=== PATIENT | female | born 1955 | race Hispanic/Latino ===

== ENCOUNTER 2023-03-05 17:22 | Observation (INO) | payer OTHER, MEDICARE ==
[~2023-03-05] VITALS: Ht 149.9 cm; Wt 64.4 kg
[~2023-03-05 17:22] MED LIST: ALBU18HF7 IH; AMLO5TAB4 PO; ASPI1TAB7 PO; FLUT9.9S NS; LISI40TA9 PO
[2023-03-05 18:13] LABS: BASOPHILS % (AUTO) 0.5 % (0.0-5.0); EOSINOPHILS % (AUTO) 2.3 % (0.0-8.0); HEMATOCRIT 42.3 % (36-48); LYMPHOCYTES % (AUTO) 42.8 % (21.0-51.0); MEAN CORPUSCULAR HEMOGLOBIN 28.5 pg (27.0-33.0); MEAN CORPUSCULAR HGB CONC 32.9 g/dL (32.0-36.0); MEAN CORPUSCULAR VOLUME 86.7 fL (79-99); MONOCYTES % (AUTO) 6.7 % (3.0-13.0); NEUTROPHILS % (AUTO) 47.5 % (40.0-77.0); PLATELET COUNT (AUTO) 306 K/uL (130-400); RED BLOOD CELL COUNT(AUTO) 4.88 MIL/uL (4.00-5.50); RED CELL DISTRIBUTION WIDTH 13.8 % (11.0-15.5); WHITE BLOOD COUNT (AUTO) 6.5 K/uL (4.8-10.8)
[2023-03-05 18:23] LABS: CREATININE 0.8 mg/dL (0.5-1.5); POTASSIUM 3.5 mmol/L (3.5-5.1)
[2023-03-05 18:29] LABS: ALBUMIN 4.1 g/dL (3.5-5.0); TOTAL PROTEIN, SERUM 8.2 g/dL (6.0-8.3)
[2023-03-05 21:29] LABS: APPEARANCE,URINE CLEAR (CLEAR); BILIRUBIN,URINE NEGATIVE (NEGATIVE); COLOR,URINE COLORLESS (YELLOW); GLUCOSE, URINE (UA) NEGATIVE (NEGATIVE); KETONES,URINE NEGATIVE (NEGATIVE); LEUKOCYTE ESTERASE ,URINE NEGATIVE Leu/uL (NEGATIVE); NITRATE,URINE NEGATIVE (NEGATIVE); OCCULT BLOOD,URINE NEGATIVE (NEGATIVE); PH,URINE 6.5 (5.0-8.0); PROTEIN,URINE NEGATIVE (NEGATIVE); UROBILINOGEN,URINE 0.2 mg/dL (0.2-1.0)
[2023-03-05] MEDS ORDERED: IPRATROPIUM/ALBUTEROL SULFATE 3 ML SOLUTION IH ONE (23:00)
[2023-03-06 01:25] VITALS: BP 163/78
[2023-03-06] MEDS ORDERED: ACETAMINOPHEN 325 MG TAB PO PRN ×2 (01:30)
[2023-03-06] MEDS ORDERED: ONDANSETRON 4MG INJ IVP PRN (01:30)
[2023-03-06] MEDS ORDERED: MORPHINE 2 MG SYG IVP PRN (01:30)
[2023-03-06 03:46] VITALS: BP 106/58
[2023-03-06 06:35] LABS: BASOPHILS % (AUTO) 0.5 % (0.0-5.0); EOSINOPHILS % (AUTO) 1.9 % (0.0-8.0); LYMPHOCYTES % (AUTO) 41.8 % (21.0-51.0); MEAN CORPUSCULAR HEMOGLOBIN 28.7 pg (27.0-33.0); MEAN CORPUSCULAR HGB CONC 33.3 g/dL (32.0-36.0); MEAN CORPUSCULAR VOLUME 86.2 fL (79-99); MONOCYTES % (AUTO) 8.6 % (3.0-13.0); PLATELET COUNT (AUTO) 252 K/uL (130-400); RED BLOOD CELL COUNT(AUTO) 4.64 MIL/uL (4.00-5.50); RED CELL DISTRIBUTION WIDTH 13.8 % (11.0-15.5); WHITE BLOOD COUNT (AUTO) 5.9 K/uL (4.8-10.8)
[2023-03-06 07:00] LABS: CREATININE 0.7 mg/dL (0.5-1.5); MAGNESIUM 2.2 mg/dL (1.80-2.40); POTASSIUM 4.1 mmol/L (3.5-5.1)
[2023-03-06 07:30] VITALS: BP 137/65
[2023-03-06] MEDS: ASPIRIN 81 MG EC TAB PO SCH (09:20)
[2023-03-06] MEDS: METOPROLOL TARTRATE 25 MG TAB PO SCH ×2 (09:20→20:23)
[2023-03-06] MEDS: ENOXAPARIN SODIUM 40 MG/0.4 ML SYRINGE SQ SCH (09:21)
[2023-03-06] MEDS ORDERED: ATOR10 PO (09:26)
[2023-03-06] MEDS ORDERED: METO-391 PO (09:26)
[2023-03-06] MEDS ORDERED: ESOM40CA54 PO (09:26)
[2023-03-06] MEDS ORDERED: AMLO-513 PO (09:26)
[2023-03-06] MEDS ORDERED: SUCR1TAB28 PO (09:26)
[2023-03-06 11:30] VITALS: BP 133/66
[2023-03-06 15:30] VITALS: BP 163/69
[2023-03-06 20:00] VITALS: BP 146/72
[2023-03-07] VITALS: BP 144/68
[2023-03-07 04:00] VITALS: BP 138/62
[2023-03-07 07:30] VITALS: BP 162/70
[2023-03-07] MEDS: METOPROLOL TARTRATE 25 MG TAB PO SCH ×2 (08:24→16:32)
[2023-03-07] MEDS: ASPIRIN 81 MG EC TAB PO SCH (08:27)
[2023-03-07] MEDS: ENOXAPARIN SODIUM 40 MG/0.4 ML SYRINGE SQ SCH (08:27)
[2023-03-07 11:30] VITALS: BP 133/52
[2023-03-07] MEDS ORDERED: LOSARTAN 25 MG TABLET PO SCH (12:00)
[2023-03-07] MEDS ORDERED: SUCRALFATE 1 GM TABLET PO SCH (21:00)
[2023-03-07] MEDS ORDERED: ATORVASTATIN 10 MG TABLET PO SCH (21:00)
[2023-03-08] MEDS ORDERED: AMLODIPINE OLMESARTAN PO SCH (09:00)
[2023-03-08] MEDS ORDERED: PANTOPRAZOLE 40 MG TAB DR PO SCH (09:00)
[2023-03-08] MEDS ORDERED: LISINOPRIL 40 MG TABLET PO SCH (09:00)
== END 2023-03-07 16:55 | disposition home or self-care (01) ==
LOC: EDH 17:22 → EDHIP 23:26 → 3BH 03-06 01:07
PROVIDERS: ADMIT Internal Medicine Infectious Disease; ATTEND Internal Medicine Infectious Disease
DX: I16.0 Hypertensive urgency (principal); R07.89 Other chest pain; I20.0 Unstable angina; R06.02 Shortness of breath; K21.9 Gastro-esophageal reflux disease without esophagitis; I10 Essential (primary) hypertension; E78.5 Hyperlipidemia, unspecified; R53.81 Other malaise; Z79.899 Other long term (current) drug therapy
CPT/HCPCS: 99285; 83735 ×2; 84484 ×5; 80053; 85025 ×2; 81003; 36415 ×2; 71045; 93005 ×3; 94640; 96372; 82550 ×3; 83874 ×3; 80048; G0378 ×42; J1650

== ENCOUNTER 2023-10-06 10:14 | Emergency (ER) | payer OTHER, MEDICARE ==
[~2023-10-06] VITALS: Ht 162.6 cm; Wt 63.5 kg
[~2023-10-06 10:14] MED LIST changes: +AMLO-513 PO; -AMLO5TAB4 PO; +ATOR10 PO; +ESOM40CA54 PO; +METO-391 PO; +SUCR1TAB28 PO
[2023-10-06] MEDS ORDERED: LIDOCAINE 5% TOPICAL PATCH TP ONE (12:00)
[2023-10-06] MEDS ORDERED: ACETAMINOPHEN 325 MG TAB PO ONE (12:00)
[2023-10-06 12:21] LABS: BASOPHILS # (AUTO) 0.03 K/uL (0.00-0.20); BASOPHILS % (AUTO) 0.4 % (0.0-5.0); EOSINOPHILS # (AUTO) 0.03 K/uL (0.00-0.70); EOSINOPHILS % (AUTO) 0.4 % (0.0-8.0); HEMATOCRIT 43.2 % (36-48); IMMATURE GRANULOCYTE ABSOLUTE 0.01 K/uL (0-1); LYMPHOCYTES # (AUTO) 1.4 K/uL (1.0-4.8); MEAN CORPUSCULAR HEMOGLOBIN 29.3 pg (27.0-33.0); MEAN CORPUSCULAR VOLUME 86.1 fL (79-99); MONOCYTES # (AUTO) 0.4 K/uL (0.1-1.0); NEUTROPHILS # (AUTO) 5.2 K/uL (1.8-7.7); NEUTROPHILS % (AUTO) 73.1 % (40.0-77.0); PLATELET COUNT (AUTO) 307 K/uL (130-400); RED BLOOD CELL COUNT(AUTO) 5.02 MIL/uL (4.00-5.50); RED CELL DISTRIBUTION WIDTH 13.7 % (11.0-15.5); WHITE BLOOD COUNT (AUTO) 7.1 K/uL (4.8-10.8)
[2023-10-06 12:31] LABS: CREATININE 0.7 mg/dL (0.5-1.5); POTASSIUM 4.3 mmol/L (3.5-5.1)
[2023-10-06 12:36] LABS: BILIRUBIN,TOTAL 0.4 mg/dL (0.2-1.0); TOTAL PROTEIN, SERUM 8.2 g/dL (6.0-8.3)
[2023-10-06] MEDS ORDERED: TRAM50TA4 PO (15:09)
[2023-10-06] MEDS: TETANUS/DIPHTHERIA TOXOID [ADULT] 0.5 ML VIAL IM ONE ×2 (15:28→15:32)
[2023-10-06 15:35] VITALS: BP 154/70; PULSE 72; RESP 16; O2SAT 99
[2023-10-06] MEDS ORDERED: TRAMADOL HCL 50 MG TABLET PO ONE (16:00)
== END 2023-10-06 15:53 | disposition home or self-care (01) ==
LOC: EDH 10:14
DX: S22.32XA Fracture of one rib, left side, initial encounter for closed fracture (principal); S80.212A Abrasion, left knee, initial encounter; I10 Essential (primary) hypertension; K21.9 Gastro-esophageal reflux disease without esophagitis; Z79.899 Other long term (current) drug therapy; Z88.5 Allergy status to narcotic agent; W18.39XA Other fall on same level, initial encounter; Y93.89 Activity, other specified; Y92.89 Other specified places as the place of occurrence of the external cause; Y99.8 Other external cause status
CPT/HCPCS: 36415; 71045; 71250; 74176; 80053; 85025; 90714; 93005

== ENCOUNTER 2023-10-15 08:23 | Emergency (ER) | payer OTHER, MEDICARE ==
[~2023-10-15] VITALS: Ht 149.9 cm; Wt 62.6 kg
[~2023-10-15 08:23] MED LIST changes: +TRAM50TA4 PO
[2023-10-15 09:01] LABS: MEAN CORPUSCULAR HEMOGLOBIN 29.8 pg (27.0-33.0); MEAN CORPUSCULAR HGB CONC 34.6 g/dL (32.0-36.0); MEAN CORPUSCULAR VOLUME 86.1 fL (79-99); RED BLOOD CELL COUNT(AUTO) 4.76 MIL/uL (4.00-5.50); RED CELL DISTRIBUTION WIDTH 13.6 % (11.0-15.5); WHITE BLOOD COUNT (AUTO) 5.7 K/uL (4.8-10.8)
[2023-10-15 09:15] LABS: APPEARANCE,URINE CLEAR (CLEAR); BILIRUBIN,URINE NEGATIVE (NEGATIVE); COLOR,URINE COLORLESS (YELLOW); GLUCOSE, URINE (UA) NEGATIVE (NEGATIVE); KETONES,URINE NEGATIVE (NEGATIVE); LEUKOCYTE ESTERASE ,URINE NEGATIVE Leu/uL (NEGATIVE); NITRATE,URINE NEGATIVE (NEGATIVE); PROTEIN,URINE NEGATIVE (NEGATIVE); UROBILINOGEN,URINE 0.2 mg/dL (0.2-1.0)
[2023-10-15 09:25] LABS: ALBUMIN 4.1 g/dL (3.5-5.0); BILIRUBIN,TOTAL 0.6 mg/dL (0.2-1.0); CREATININE 0.4 mg/dL (0.5-1.5); POTASSIUM 4.7 mmol/L (3.5-5.1); TOTAL PROTEIN, SERUM 7.9 g/dL (6.0-8.3)
[2023-10-15 09:27] LABS: ADD UA MICROSCOPIC YES
[2023-10-15 09:29] LABS: MUCUS,URINE RARE LPF (None Seen); SQUAMOUS EPITHELIAL CELL,UR RARE /HPF (0-2)
[2023-10-15] MEDS ORDERED: SENN1TAB72 PO (12:05)
[2023-10-15] MEDS ORDERED: PHEN26CR2 RC (12:05)
[2023-10-15 12:09] VITALS: BP 154/79; PULSE 82; RESP 16; O2SAT 98
== END 2023-10-15 12:12 | disposition home or self-care (01) ==
LOC: EDH 08:23
DX: K64.4 Residual hemorrhoidal skin tags (principal); K21.9 Gastro-esophageal reflux disease without esophagitis; I10 Essential (primary) hypertension; Z79.899 Other long term (current) drug therapy; Z88.5 Allergy status to narcotic agent
CPT/HCPCS: 36415; 80053; 81001; 82270; 85027

== ENCOUNTER → 2025-03-01 | Outpatient (CLI) | payer OTHER, MEDICARE ==
[~2025-03-01] MED LIST changes: -ALBU18HF7 IH; -ASPI1TAB7 PO; -ATOR10 PO; -ESOM40CA54 PO; -FLUT9.9S NS; -LISI40TA9 PO; -SUCR1TAB28 PO; -TRAM50TA4 PO
== END | disposition home or self-care (01) ==
LOC: RAH 13:07
PROVIDERS: ATTEND Internal Medicine Cardiovascular Disease
DX: I08.8 Other rheumatic multiple valve diseases (principal); I10 Essential (primary) hypertension
CPT/HCPCS: 93306

== ENCOUNTER → 2025-05-24 | Outpatient (CLI) | payer OTHER, MEDICAID ==
[~2025-05-24] MED LIST changes: +IOHEXOL-350 75 ML VIAL IV ONE
--- NOTE | 2025-05-25 09:21 | HMCIMG ---
EXAM: CT Abdomen and Pelvis without IV contrast CLINICAL HISTORY: Fatty liver. Abnormal serum enzymes. TECHNIQUE: Axial computed tomography images of the abdomen and pelvis without intravenous contrast. CONTRAST: No IV contrast. COMPARISON: None provided. FINDINGS: LUNG BASES: The lung bases appear clear except for bibasilar linear atelectasis. No pleural effusions are seen. LIVER: There are three well-defined fluid density lesions, which may represent cysts, the largest measuring 2.3 cm in the left lobe. No additional focal lesion of the liver. GALLBLADDER AND BILE DUCTS: The gallbladder appears within normal limits. No radiopaque gallstones are seen. No biliary ductal dilatation is evident. PANCREAS: Unremarkable. SPLEEN: Unremarkable. ADRENAL GLANDS: Unremarkable. KIDNEYS, URETERS, AND BLADDER: The kidneys appear within normal limits. There is no hydronephrosis or hydroureter. No urinary calculi are seen. STOMACH AND BOWEL: Unremarkable appearance of the stomach and bowel. No evidence of bowel obstruction. No evidence suggesting enteritis or colitis. Descending and rectosigmoid colon. APPENDIX: No evidence of acute appendicitis on CT examination. PERITONEUM: No free fluid. No free air. LYMPH NODES: No lymphadenopathy is evident. REPRODUCTIVE: The uterus is surgically absent. No adnexal mass is seen. VASCULATURE: The aorta and its branches demonstrate atheromatous calcifications without aneurysm. BONES: No aggressive appearing osseous lesion. No acute osseous pathology evident. SOFT TISSUE: There are small fat containing bilateral inguinal hernias. IMPRESSION: No acute intra-abdominal or pelvic abnormality. Three small hepatic cysts. /[place]
== END | disposition home or self-care (01) ==
LOC: RAH 05-18 09:55
PROVIDERS: ATTEND Internal Medicine
DX: K40.20 Bilateral inguinal hernia, without obstruction or gangrene, not specified as recurrent (principal); K76.89 Other specified diseases of liver; J98.11 Atelectasis; I70.0 Atherosclerosis of aorta; R10.9 Unspecified abdominal pain; R74.8 Abnormal levels of other serum enzymes; Z90.710 Acquired absence of both cervix and uterus
CPT/HCPCS: 74176; Q9967